=== PATIENT | male | born 2000 ===

== ENCOUNTER 2021-02-23 08:49 | Observation (INO) ==
[2021-02-23 10:20] LABS: ABS Lymphocytes 0.8 10^3/ul (1.0-4.8); ABS Monocytes 0.7 10^3/ul (0-0.8); ABS Neutrophils 12.6 10^3/ul (1.5-7.7); Eosinophil % 0.1 %; Hematocrit 41 % (42-52); Hemoglobin 14.1 g/dL (14.0-18.0); Lymphocyte % 5.8 %; Mean Corpuscular HGB Conc 35 g/dL (31-36); Mean Corpuscular Hemoglobin 32 pg (27-31); Mean Corpuscular Volume 93 fL (80-94); Mean Platelet Volume 8.5 fL (7.4-10.4); Platelet Count 238 10^3/uL (150-450); Red Cell Distribution Width 12 % (10-15); White Blood Count 14.1 10^3/uL (3.5-10.8)
[2021-02-23 10:37] LABS: ALT 25 U/L (7-52); AST 46 U/L (13-39); Albumin 4.6 g/dL (3.2-5.2); Albumin/Globulin Ratio 1.4 (1-3); Alkaline Phosphatase 84 U/L (35-149); Anion Gap 7 mmol/L (2-11); Blood Urea Nitrogen 17 mg/dL (6-24); C Reactive Protein 13.96 mg/L (<8.01); CO2 Carbon Dioxide 26 mmol/L (22-32); Chloride 104 mmol/L (101-111); EGFR African American 111.8 (>60); EGFR Non-African American 92.4 (>60); Globulin 3.2 g/dL (2-4); Glucose 131 mg/dL (70-100); Lipase < 10 U/L (11.0-82.0); Sodium 137 mmol/L (135-145); Total Protein 7.8 g/dL (6.4-8.9)
[2021-02-23] MEDS ORDERED: Iohexol 300 (CONTRAST) 10 ML SDV IV ONE (10:47)
[2021-02-23] MEDS ORDERED: Lactated Ringers 1000 ml BAG 1,000 ML IV ONE (11:30)
[2021-02-23] MEDS ORDERED: Piperacillin/Tazobac ADVAN 3.375 GM in NS 0.9% 100 ml BAG 100 ML IV ONE (11:37)
[2021-02-23] MEDS ORDERED: Ondansetron 4 mg VIAL 2 MG/ML 2 ml VIAL IV ONE (11:37)
[2021-02-23] MEDS ORDERED: Morphine 4 MG/ML VIAL (1 ml) IV ONE (11:37)
[2021-02-23] MEDS ORDERED: NS 0.9% 1000 ml BAG 1,000 ML IV ONE (11:58)
[2021-02-23 14:18] LABS: Rapid COVID-19 Molecular Undetected (Undetected)
[2021-02-23] MEDS ORDERED: ceFAZolin 2 GM in NS PREMIX 2 GM/100 ML BAG IVPB ONE (17:18)
[2021-02-23] MEDS ORDERED: Sodium Citrate/Citric Acid LIQ 15 ML UDC ONE (18:02)
[2021-02-23] MEDS ORDERED: Dexamethasone IV 4 MG/ML VIAL 1 ml VIAL ONE (18:02)
[2021-02-23] MEDS ORDERED: Sodium Citrate/Citric Acid LIQ 15 ML UDC PO ONE (18:03)
[2021-02-23] MEDS ORDERED: Naloxone 0.4 mg VIAL 0.4 mg/ml 1 ml VIAL IV PRN (18:03)
[2021-02-23] MEDS ORDERED: oxyCODONE/Acetamin 5/325 mg TAB PO PRN (18:03)
[2021-02-23] MEDS ORDERED: Dexamethasone IV 4 MG/ML VIAL 1 ml VIAL IV SLOW PU ONE (18:03)
[2021-02-23] MEDS ORDERED: HYDROcodone/ACETAMIN 5/325 mg TAB PO PRN ×2 (18:03→18:26)
[2021-02-23] MEDS ORDERED: DiMENhydriNATE IV 50 mg/ml 1 ml VIAL IV PUSH PRN (18:03)
[2021-02-23] MEDS ORDERED: Bupivacaine 0.25% SDV 30 ML ONE (18:04)
[2021-02-23] MEDS ORDERED: Rocuronium 50 mg VIAL 10 mg/ml 5 ml VIAL (50 mg) ONE ×2 (18:24→19:05)
[2021-02-23] MEDS ORDERED: fentaNYL 100 mcg/2 ml 50 MCG/ML VIAL ONE (18:24)
[2021-02-23] MEDS ORDERED: Lidocaine 2% PF 5 ML VIAL ONE (18:25)
[2021-02-23] MEDS ORDERED: Propofol 10 MG/ML 20 ML BTL ONE (18:25)
[2021-02-23] MEDS ORDERED: HYDROmorphone 1 MG/1 ML SYRINGE IV SLOW PU PRN (18:26)
[2021-02-23] MEDS ORDERED: Ondansetron 4 mg VIAL 2 MG/ML 2 ml VIAL IV PRN (18:26)
[2021-02-23] MEDS ORDERED: Ondansetron 4 mg VIAL 2 MG/ML 2 ml VIAL ONE (19:28)
[2021-02-23] MEDS: Lactated Ringers 1000 ml BAG 1,000 ML IV SCH ×2 (21:31→22:59)
[2021-02-24 07:50] VITALS: BP 102/69
== END 2021-02-24 10:11 | disposition home or self-care (01) ==
LOC: ED 08:49 → OR 18:05 → SSU 18:05
PROVIDERS: ADMIT Surgery; ATTEND Surgery